=== PATIENT | female | born 1995 | race Caucasian/White ===

== ENCOUNTER 2020-02-09 09:38 | Emergency (ER) | payer OTHER, SELFPAY ==
--- NOTE | ~2020-02-09 | XR_ITS ---
EXAMINATION: XR chest 1V portable DATE: 02/09/2020 14:19 INDICATION: Cough. TECHNIQUE: A single frontal view of the chest was obtained. COMPARISON: CT abdomen and pelvis 02/09/2020 FINDINGS: The chest demonstrates clear lungs without pneumonia, pleural effusion, or pneumothorax. Th e heart size is normal. IMPRESSION: 1. No acute cardiopulmonary disease. Reviewed, dictated and finalized at location A.
--- NOTE | ~2020-02-09 | CT_ITS ---
EXAMINATION: CT abdomen pelvis wo con DATE: 02/09/2020 13:57 INDICATION: Left flank pain with 2 days of nausea TECHNIQUE: Computed tomography (CT) of the abdomen and pelvis was performed without intravenous contr ast. Automated exposure control and iterative reconstruction technique were employed. The dose-length product was 174.10 mGy-cm. COMPARISON: None FINDINGS: Small amount of tree-in-bud opacity in the right lower lobe and more subtly in the left lower lobe co nsistent with pneumonia with endobronchial spread of disease. There is mild mucous plugging within a few right lower lobar bronchi. Heart size is normal. No pericardial or pleural effusion. Liver, gallb ladder, spleen, pancreas and bilateral adrenal glands are normal. Kidneys and ureters are normal with no urolithiasis, hydroureteronephrosis or perinephric/ureteral stranding. Bladder, anteverted uterus and bilateral adnexa are unremarkable. No abnormal bowel wall thickening or obstruction. The appendi x is not visualized. No pericecal inflammatory change to suggest acute appendicitis. Small amount of likely physiologic free fluid in the pelvis. No abscess or free intraperitoneal gas. No pathologicall y enlarged abdominal or pelvic lymphadenopathy. Bones are unremarkable. IMPRESSION: 1. Small amount of likely physiologic free fluid in the pelvis. No urolithiasis or other acute intra- abdominal/pelvic process. 2. Mild tree-in-bud opacities in the bilateral lower lobes, right greater than left with mild mucous plugging the right lower lobar bronchi consistent with pneumonia. Reviewed, dictated and finalized at location B. IMPRESSION: 1. Small amount of likely physiologic free fluid in the pelvis. No urolithiasis or other acute intra-abdominal/pelvic process. 2. Mild tree-in-bud opacities in the bilateral lower lobes, right greater than left with mild mucous plugging the right lower lobar bronchi consistent with pn eumonia.
[2020-02-09 10:19] VITALS: BP 120/67; PULSE 94; RESP 16; TEMP 36.3; O2SAT 98
[2020-02-09 13:30] VITALS: BP 130/68; PULSE 72; RESP 16; O2SAT 97
[2020-02-09] MEDS: SODIUM CHLORIDE 0.9% IV 1,000 ML 999 ML IV CONT (13:30)
[2020-02-09] MEDS: ONDANSETRON INJ 4 MG/2 ML VIAL IV PUSH (13:38)
[2020-02-09] MEDS: FAMOTIDINE 20 MG/2 ML VIAL IV PUSH (13:38)
[2020-02-09 13:55] LABS: Basophils Absolute Auto 0.1 K/mm3 (0.0-0.1); Basophils Percent Auto 0.9 % (0.2-1.2); Eosinophils Absolute Auto 0.2 K/mm3 (0-0.3); Eosinophils Percent Auto 2.2 % (0-4.4); Hematocrit 41.7 % (37.0-47.0); Hemoglobin 14.3 g/dL (12.0-15.0); Immature Granulocyte Absolute 0.03 K/mm3 (0.00-0.031); Immature Granulocyte Percent A 0.3 % (0-0.5); Lymphocytes Absolute Auto 2.73 K/mm3 (0.9-3.2); Lymphocytes Percent Auto 30.7 % (18.3-44.2); Mean Corpuscular HGB Conc 34.3 g/dl (32-36); Mean Corpuscular Hemoglobin 31.4 pg (26-34); Mean Corpuscular Volume 91.6 fl (80-100); Mean Platelet Volume 11.5 fl (7.4-10.4); Monocytes Absolute Auto 0.7 K/mm3 (0.1-0.6); Monocytes Percent Auto 7.8 % (2.6-8.5); Neutrophils Absolute Auto 5.2 K/mm3 (1.3-6.7); Neutrophils Percent Auto 58.1 % (45.5-73.1); Platelet Count Result 164 k/mm3 (150-375); Red Blood Count 4.55 M/mm3 (4.2-5.4); White Blood Count 8.9 K/mm3 (4.5-10.0)
[2020-02-09 13:57] LABS: Add Urine Microscopic? YES; Appearance Urine Clear (Clear); Bilirubin Urine Negative (Negative); Blood Urine 1+ (Negative); Color Urine Straw (Yellow); Glucose Urine UA Negative (Negative); Ketones Urine Negative (Negative); Leukocyte Esterase Ur Negative LEU/UL (Negative); Mucus Urine Rare /lpf; Nitrate Urine Negative (Negative); Protein Urine Negative (Negative); RBC Urine 0-2 /hpf (0-2); Specific Grav Ur 1.006 (1.001-1.035); Squamous Epithelial Cell Urine Few /hpf (Few); Urobilinogen Urine Negative mg/dL (<2.0); WBC Urine 0-3 /hpf
[2020-02-09 14:07] LABS: Alanine Aminotransferase 9 U/L (4-35); Albumin Level 4.4 g/dL (3.5-5.1); Alkaline Phosphatase 47 U/L (38-126); Anion Gap 8 mmol/L (8-16); Aspartate Amino Transferase 16 U/L (14-36); Bilirubin,Total 0.4 mg/dL (0.2-1.3); Blood Urea Nitrogen 8 mg/dL (7-17); Calcium 9.2 mg/dL (8.4-10.2); Carbon Dioxide 27 mmol/L (22-30); Chloride 105 mmol/L (98-107); Estimated CRCL calculation 60 ml/min; Estimated Glomerular Filt Rate > 60; Glucose 96 mg/dL (65-105); Potassium 3.4 mmol/L (3.4-5.0); Sodium 140 mmol/L (137-145)
--- NOTE | 2020-02-09 14:14 | ED.GENADULT ---
HPI - General Adult General Chief complaint: Urogenital-Female Stated complaint: kidney pain Time Seen by Provider: 02/09/20 12:49 Source: patient Mode of arrival: ambulatory Limitations: no limitations History of Present Illness HPI narrative: Patient is a 24-year-old female who presents with low back pain for the last couple of days noting that she had had a recent kidney infection and believe that it may have been a recurrence patient notes aching pain to the lower back patient denies any dyspnea URI symptoms. Patient presents in uncomfortable state but no distress patient has not been seen for this complaint denies sick contact Related Data Home Medications Medication Instructions Recorded Confirmed albuterol sulfate INHALATION 02/09/20 ondansetron HCl 02/09/20 Allergies Allergy/AdvReac Type Severity Reaction Status Date / Time sumatriptan Allergy Mild Dizziness Verified 02/09/20 13:30 hydrocodone Allergy Unknown Nausea Verified 02/09/20 13:30 Review of Systems Review of Systems: All systems reviewed & are unremarkable except as noted in HPI and below PMFSH Social History Social History (Updated 02/09/20 @ 14:15 by Evens Rice PA-C) Smoking status: Never smoker Gender identity (if verbalized by the patient): Female Exam Narrative: Exam Narrative: GENERAL: Well-appearing, well-nourished, and in no acute distress. HEAD: Normocephalic, atraumatic. EYES: PERRLA and EOMI. ENT: Nares clear, no rhinorrhea or epistaxis. Mucous membranes moist. Oropharynx without tonsillar hypertrophy exudate or other lesions. CHEST: Clear to auscultation. No respiratory distress. Crackles in the lung bases HEART: Regular rate and rhythm. No murmur heard. Normal peripheral pulses. ABDOMEN: Soft, nontender, nondistended EXTREMITIES: Normal range of motion. No edema. SKIN: Warm, dry, no rash. NEURO: No focal deficits. Alert and oriented x3. Cranial nerves II through XII grossly intact PSYCH: Normal mood and affect. Course Course Emergency Course: Patient came in with what she thought was a kidney infection does not appear to be the case there are some groundglass opacities in the bilateral lower lungs which does raise concern for possible Covid pneumonia will be tested for this and follow with primary care. Patient advised that she needs to contact her primary care as that is the only person that can get her COVID-19 results for her. Patient agrees to do so. Patient afebrile nontoxic-appearing no distress feeling better with her interventions Vital Signs Vital signs: Vital Signs Temperature 97.4 F L 02/09/20 10:19 Pulse Rate 94 02/09/20 10:19 Respiratory Rate 16 02/09/20 10:19 Blood Pressure 120/67 02/09/20 10:19 Pulse Oximetry 98 02/09/20 10:19 Temperature 97.4 F L 02/09/20 10:19 Pulse Rate 94 02/09/20 10:19 Respiratory Rate 16 02/09/20 10:19 Blood Pressure 120/67 02/09/20 10:19 Pulse Oximetry 98 02/09/20 10:19 Medical Decision Making MDM Narrative Medical decision making narrative: Patient with potential Covid pneumonia will be discharged with follow-up with primary care advised to contact her primary care first thing tomorrow because her primary care doctor will be the one necessary to get her results will also be given the on-call physician to help in case she cannot get in touch with her physician. Patient is afebrile nontoxic-appearing no distress normal vital signs felt appropriate for outpatient reevaluation agreement to follow with primary care Vital Signs Vital Signs: Vital Signs Temperature 97.4 F L 02/09/20 10:19 Pulse Rate 94 02/09/20 10:19 Respiratory Rate 16 02/09/20 10:19 Blood Pressure 120/67 02/09/20 10:19 Pulse Oximetry 98 02/09/20 10:19 Temperature 97.4 F L 02/09/20 10:19 Pulse Rate 94 02/09/20 10:19 Respiratory Rate 16 02/09/20 10:19 Blood Pressure 120/67 02/09/20 10:19 Pulse Oximetry 98 02/09/20 10:19 Lab D
[2020-02-09 15:05] VITALS: BP 120/69; PULSE 70; RESP 16; O2SAT 97
[2020-02-09 21:13] LABS: SARS-CoV-2 RNA PCR Negative
== END 2020-02-09 15:05 | disposition home or self-care (01) ==
PROVIDERS: Emergency Medicine Emergency Medical Services; Emergency Provider Emergency Medicine
DX: J18.9 Pneumonia, unspecified organism (principal); Z20.828 Contact with and (suspected) exposure to other viral communicable diseases
CPT/HCPCS: 36415; 71045; 74176; 80053; 81001; 81025; 85025; 87635; 96361; 96365; 96375; 99284; C9803; J0131; J2405; J7030; U0003

== ENCOUNTER 2020-06-15 12:39 | Emergency (ER) | payer OTHER, SELFPAY ==
[2020-06-15 13:00] VITALS: BP 112/74; PULSE 88; RESP 16; TEMP 36.6; O2SAT 99
--- NOTE | 2020-06-15 14:03 | ED.GENADULT ---
HPI - General Adult General Chief complaint: Unspecified Stated complaint: swollen groin glands and neck glands Time Seen by Provider: 06/15/20 13:18 Source: patient Mode of arrival: ambulatory Limitations: no limitations History of Present Illness HPI narrative: A 25-year-old female comes into the emergency department today with complaints of swollen lymph nodes. Patient states that she was seen at an outside urgent care and recommended to come to the emergency department for blood work . Patient states that she notes that she has swollen lymph nodes in the back of her head and in her bilateral groin. Patient denies any recent illnesses, injuries or anything that she can think of that would have caused swollen lymph nodes. Related Data Home Medications Medication Instructions Recorded Confirmed albuterol sulfate INHALATION 02/09/20 ondansetron HCl 02/09/20 Allergies Allergy/AdvReac Type Severity Reaction Status Date / Time sumatriptan AdvReac Mild Dizziness Verified 06/15/20 13:04 hydrocodone AdvReac Unknown Nausea Verified 06/15/20 13:04 Review of Systems Review of Systems: Narrative: CONSTITUTIONAL: Denies fever, chills, or sweats. EYES: Denies visual changes, redness, or discharge. ENT: Denies rhinorrhea, congestion, sore throat, or otalgia. Endorses lymphadenopathy bilaterally in the occipital area, right worse than left CARDIOVASCULAR: Denies chest pain, palpitations, or edema. RESPIRATORY: Denies cough or dyspnea. GASTROINTESTINAL: Denies abdominal pain, nausea, vomiting, or diarrhea. GENITOURINARY: Denies dysuria or hematuria. Endorses inguinal lymphadenopathy bilaterally SKIN: Denies rash or itching. MUSCULOSKELETAL: Denies back pain, joint pain, or myalgia. NEUROLOGIC: Denies headache, numbness, dizziness, or weakness. PSYCHIATRIC: Denies anxiety or depression. [facility] [place] Social History Social History Smoking status: Never smoker Gender identity (if verbalized by the patient): Female Exam Narrative: Exam Narrative: GENERAL: Well-appearing, well-nourished, and in no acute distress. HEAD: Normocephalic, atraumatic. EYES: PERRLA and EOMI. ENT: Nares clear, no rhinorrhea or epistaxis. Mucous membranes moist. Occipital lymphadenopathy found, right worse than left. Right lymph node tender to palpation in the occipital chain. Right tympanic membrane cloudy and slightly bulging NECK: Supple. No adenopathy or masses. No carotid bruits or JVD CHEST: Clear to auscultation. No respiratory distress. No wheezes rales or rhonchi HEART: Regular rate and rhythm. No murmur heard. Normal peripheral pulses. ABDOMEN: Soft, nontender, nondistended, normal active bowel sounds. EXTREMITIES: Normal range of motion. No edema. Bilateral inguinal lymphadenopathy, freely mobile, swollen and tender to touch. SKIN: Warm, dry, no rash. NEURO: No focal deficits. Alert and oriented x3. PSYCH: Normal mood and affect. Course Vital Signs Vital signs: Vital Signs Temperature 36.6 C 06/15/20 13:00 Pulse Rate 88 06/15/20 13:00 Respiratory Rate 16 06/15/20 13:00 Blood Pressure 112/74 06/15/20 13:00 Pulse Oximetry 99 06/15/20 13:00 Temperature 36.6 C 06/15/20 13:00 Pulse Rate 88 06/15/20 13:00 Respiratory Rate 16 06/15/20 13:00 Blood Pressure 112/74 06/15/20 13:00 Pulse Oximetry 99 06/15/20 13:00 Medical Decision Making MDM Narrative Medical decision making narrative: In brief this 25-year-old female came into the emergency department with complaints of lymphadenopathy. Patient had in multiple locations including her bilateral inguinal chains and occipital. The inguinal chains did appear to be somewhat worse based on my examination. Her groin was examined by myself, chaperoned by AVIVA Knight. No obvious signs of infection, patient adamantly denied any vaginal discharge. Vaginal exam deferred per patient comfort. Examination of the patien
== END 2020-06-15 14:34 | disposition home or self-care (01) ==
PROVIDERS: Emergency Provider Emergency Medicine; PCP Internal Medicine
DX: R59.1 Generalized enlarged lymph nodes (principal); H65.01 Acute serous otitis media, right ear
CPT/HCPCS: 99283

== ENCOUNTER 2020-08-22 11:47 | Outpatient (CLI) | payer OTHER, SELFPAY | END 2020-08-22 11:48 | disposition home or self-care (01) | LOC: ANHLAB 11:51 | PROVIDERS: PCP Internal Medicine; Visit Provider Obstetrics & Gynecology | DX: O03.9 Complete or unspecified spontaneous abortion without complication (principal) | CPT/HCPCS: 36415; 85461 ==

== ENCOUNTER 2020-08-29 10:58 | Outpatient (RCR) | payer OTHER, SELFPAY ==
[2020-08-29] MEDS: RHO(D) IMMUNE GLOBULIN 300 MCG/2 ML SYRINGE IM (16:13)
== END 2020-11-27 23:59 | disposition home or self-care (01) ==
LOC: ANHLAB 10:58
PROVIDERS: PCP Internal Medicine; Visit Provider Obstetrics & Gynecology
DX: Z29.13 Encounter for prophylactic Rho(D) immune globulin (principal); O36.0190 Maternal care for anti-D [Rh] antibodies, unspecified trimester, not applicable or unspecified; Z3A.00 Weeks of gestation of pregnancy not specified; Z67.91 Unspecified blood type, Rh negative
CPT/HCPCS: 36415; 85461; 90384; 96372; J2790